=== PATIENT | female | born 1975 | race African-American/Black ===

== ENCOUNTER → 2017-05-22 | Outpatient (CLI) | payer SELFPAY ==
[~2017-05-22] MED LIST: LORTAB 101 TAB 10/5 PO
== END | disposition home or self-care (01) ==
LOC: CBAR 09:34
DX: Z01.818 Encounter for other preprocedural examination (principal); E66.01 Morbid (severe) obesity due to excess calories
CPT/HCPCS: G0463

== ENCOUNTER → 2017-06-19 | Outpatient (CLI) | payer SELFPAY | END | disposition home or self-care (01) | LOC: CBAR 09:27 | DX: Z01.818 Encounter for other preprocedural examination (principal); E66.01 Morbid (severe) obesity due to excess calories | CPT/HCPCS: G0463 ==

== ENCOUNTER → 2017-07-17 | Outpatient (CLI) | payer SELFPAY | END | disposition home or self-care (01) | LOC: CBAR 06:26 | DX: Z01.818 Encounter for other preprocedural examination (principal); E66.01 Morbid (severe) obesity due to excess calories | CPT/HCPCS: G0463 ==